=== PATIENT | female | born 1990 | race Caucasian/White ===

== ENCOUNTER 2021-01-02 18:34 | Inpatient (IN) | payer BC ==
[2021-01-02] MEDS ORDERED: HYDROcodone/Acetaminophen 5/325 mg Tablet PO PRN (18:46)
[2021-01-02] MEDS ORDERED: Lidocaine 1% (PF) 30 ML VIAL SC PRN (18:46)
[2021-01-02] MEDS ORDERED: Butorphanol Tartrate 1 MG/ML VIAL SLOW IVP PRN (18:46)
[2021-01-02] MEDS ORDERED: Ibuprofen 800 MG TAB PO PRN (18:46)
[2021-01-02] MEDS ORDERED: hydrALAZINE 20 MG/ML VIAL SLOW IVP PRN (18:46)
[2021-01-02] MEDS ORDERED: Ondansetron PF 4 MG/2 ML Vial IVP PRN (18:46)
[2021-01-02 18:57] VITALS: BMI 27.1
[2021-01-02] MEDS ORDERED: Lactated Ringer's 1,000 ML IV SCH (19:00)
[2021-01-02] MEDS ORDERED: NS w/ Oxytocin 30 units 500 ML IV SCH (19:00)
[2021-01-02] MEDS: Lactated Ringer's 1,000 ML IV SCH ×2 (19:00→20:46)
[2021-01-02 19:21] LABS: Hemoglobin 13.4 g/dL (12.0-15.5); Mean Corpuscular HGB CONC 34.1 g/dL (32.0-36.0); Mean Corpuscular Hemoglobin 29.8 pg (27.0-33.0); Mean Corpuscular Volume 87.5 fl (81.6-98.3); Mean Platelet Volume 9.5 fl (7.4-10.4); Platelet Count 232 10x3/uL (150-450); RBC Distribution Width 13.2 % (11.5-14.5); Red Blood Cell (RBC) Count 4.49 10x6/uL (3.90-5.03); White Blood Cell (WBC) Count 10.8 10x3/uL (3.5-10.5)
[2021-01-02] MEDS ORDERED: Fentanyl 2 mcg/Bup 0.1% Cadd 100 ML ONE (19:50)
[2021-01-02 19:55] LABS: Hep B Surf Ag Non-Reactive S/CO (NonReactive); Syphilis Antibody Nonreactive (Nonreactive); Syphilis Antibody Index 0.04 S/CO (<1.00 Non-Reactive)
[2021-01-02] MEDS ORDERED: Lidocaine 1% (PF) 30 ML VIAL ONE (23:14)
[2021-01-03] MEDS ORDERED: Boostrix 0.5 ML (Tdap) VIAL IM ONE (01:26)
[2021-01-03] MEDS ORDERED: Lanolin Ointment 7 GM TUBE TOP PRN (01:26)
[2021-01-03] MEDS ORDERED: Milk Of Magnesia 30 ML UDCUP PO PRN (01:26)
[2021-01-03] MEDS ORDERED: hydrALAZINE 20 MG/ML VIAL SLOW IVP PRN (01:26)
[2021-01-03] MEDS ORDERED: Benzocaine-Menthol 82.5 ML CAN TOP PRN (01:26)
[2021-01-03] MEDS ORDERED: Bisacodyl 10 MG SUPP PR PRN (01:26)
[2021-01-03] MEDS ORDERED: Ondansetron PF 4 MG/2 ML Vial IVP PRN (01:26)
[2021-01-03] MEDS: Ibuprofen 800 MG TAB PO SCH ×3 (04:35→19:15)
[2021-01-03 04:42] LABS: Hemoglobin 12.2 g/dL (12.0-15.5); Mean Corpuscular HGB CONC 34.3 g/dL (32.0-36.0); Mean Corpuscular Hemoglobin 30.2 pg (27.0-33.0); Mean Corpuscular Volume 88.1 fl (81.6-98.3); Mean Platelet Volume 9.5 fl (7.4-10.4); Platelet Count 199 10x3/uL (150-450); RBC Distribution Width 13.2 % (11.5-14.5); Red Blood Cell (RBC) Count 4.04 10x6/uL (3.90-5.03)
[2021-01-03] MEDS: Ferrous Sulfate 325 MG TAB PO SCH ×2 (07:48→15:47)
[2021-01-03] MEDS: Prenatal Vitamin 1 TAB PO SCH (09:26)
[2021-01-03] MEDS: Docusate Calcium (SURFAK) 240 MG CAP PO SCH ×2 (09:26→21:06)
[2021-01-04] MEDS: Ibuprofen 800 MG TAB PO SCH ×2 (04:57→14:26)
[2021-01-04 08:04] VITALS: BP 119/72; TEMP 97.8
[2021-01-04] MEDS: Ferrous Sulfate 325 MG TAB PO SCH (08:09)
[2021-01-04] MEDS: Prenatal Vitamin 1 TAB PO SCH (09:14)
[2021-01-04] MEDS: Docusate Calcium (SURFAK) 240 MG CAP PO SCH (09:14)
== END 2021-01-04 14:55 | disposition home or self-care (01) | DRG 807 ==
LOC: CSHLD 18:34 → CSHPP 01-03 01:42
PROVIDERS: ADMIT Obstetrics & Gynecology; ATTEND Obstetrics & Gynecology
PROC: 10E0XZZ Delivery of Products of Conception, External Approach (ICD-10-PCS; principal; 2021-01-02)
PROC: 3E033VJ Introduction of Other Hormone into Peripheral Vein, Percutaneous Approach (ICD-10-PCS; 2021-01-02)
PROC: 3E0334Z Introduction of Serum, Toxoid and Vaccine into Peripheral Vein, Percutaneous Approach (ICD-10-PCS; 2021-01-02)
DX: O99.344 Other mental disorders complicating childbirth (principal); Z37.0 Single live birth; Z3A.40 40 weeks gestation of pregnancy; F41.9 Anxiety disorder, unspecified
CPT/HCPCS: 36415; 51702; 85027; 85461; 86780; 86850; 86870; 86900; 86901; 86922; 87340; 90384; 96372; 99285; J7120